=== PATIENT | female | born 1935 | race Caucasian/White ===

== ENCOUNTER 2017-04-14 09:27 | Day surgery (SDC) | payer OTHER, BC ==
[2017-04-14] MEDS ORDERED: FUROSEMIDE 40 MG/4 ML INJECTABLE VIAL IVPUSH ONE (11:30)
[2017-04-14 12:28] VITALS: TEMP 98.2
[2017-04-14] MEDS ORDERED: FUROSEMIDE 40 MG/4 ML INJECTABLE VIAL ONE (16:12)
[2017-04-14 17:48] VITALS: BP 150/62; PULSE 83
== END 2017-04-14 18:05 | disposition home or self-care (01) ==
LOC: FM/S 09:27 → FBLOOD 09:27
PROVIDERS: ATTEND Internal Medicine Hematology & Oncology
PROC: 30233N1 Transfusion of Nonautologous Red Blood Cells into Peripheral Vein, Percutaneous Approach (ICD-10-PCS; principal; 2017-04-14)
PROC: 3E033GC Introduction of Other Therapeutic Substance into Peripheral Vein, Percutaneous Approach (ICD-10-PCS; 2017-04-14)
DX: D64.9 Anemia, unspecified (principal)
CPT/HCPCS: 36430; P9038; P9058